=== PATIENT | female | born 1935 | race Caucasian/White ===

== ENCOUNTER 2016-10-29 09:40 | Emergency (ER) | payer MEDICARE ==
[~2016-10-29] VITALS: Ht 147.3 cm; Wt 59.0 kg
[~2016-10-29 09:40] MED LIST: HYDR-3533 PO; IBUP600T26 PO; METO50TA PO; NIFE30TA57 PO; OMEP20CA5 PO; PRAV40TA PO; TRAM50 PO
[2016-10-29] MEDS ORDERED: METO50TA PO (09:52)
[2016-10-29] MEDS ORDERED: OMEP20TA PO (09:52)
[2016-10-29 09:56] VITALS: TEMP 97.6
--- NOTE | 2016-10-29 09:56 | PD ---
HPI Chief Complaint: right knee pain Time Seen by Provider: 09:43 Travel History International Travel<30 days: No Contact w/Intl Traveler<30days: No Traveled to known affect area: No History of Present Illness HPI This is an 81-year-old female who presents today with complaint of right knee pain. The patient was brought in by EMS. The patient states that on Sunday, 5 days ago she and her son were out looking for a scooter chair. She states that she has bad arthritis throughout her body and is looking for scooter chair that would help her with getting around. She reports that she was walking a lot. She states that on Sunday she started sprinting pain in her right knee. She states that it has progressively gotten worse over the last several days. She denies any fevers chills. She denies any injury to the leg. She does report that she was getting in and out of the car and was using that leg for her weightbearing. She does have a history of bursitis in that knee. She states it feels very similar to that. She reports chronic swelling of both knees. There are no other complaints time my examination. PFSH Past Medical History Arthritis: Yes Asthma: No Depression: Yes Heart Rhythm Problems: Yes (HTN) Cancer: No Cardiovascular Problems: No High Cholesterol: Yes Chest Pain: No Congestive Heart Failure: No COPD: No Cerebrovascular Accident: No Diabetes: No Diminished Hearing: Yes Endocrine: No GERD: Yes Genitourinary: No Headaches: No Hepatitis: No Hiatal Hernia: Yes Hypertension: Yes Immune Disorder: No Kidney Stones: No Musculoskeletal: No Neurologic: No Psychiatric: No Reproductive: No Respiratory: No Migraines: No Myocardial Infarction: Yes Renal Failure: No Seizures: No Sleep Apnea: No Thyroid Disease: No Ulcer: No Past Surgical History Abdominal Surgery: No Appendectomy: No Cardiac Surgery: No Cholecystectomy: No Ear Surgery: No Endocrine Surgery: No Eye Surgery: Yes (CATARACT SX LEFT EYE) Genitourinary Surgery: No Gynecologic Surgery: No Oral Surgery: Yes Pacemaker: No Thoracic Surgery: No Social History Alcohol Use: No Tobacco Use: No Substance Use: No Allergies-Medications (Allergen,Severity, Reaction): Coded Allergies: No Known Allergies (Verified , 10/29/16) Reported Meds & Prescriptions Reported Meds & Active Scripts Active Medrol Dosepak (Methylprednisolone) 4 Mg Dspk 4 Mg PO DIRECTED Per Pharmacist direction Mobic (Meloxicam) 7.5 Mg Tab 7.5 Mg PO DAILY Reported Pravastatin 40 Mg Tab 40 Mg PO DAILY Hydrocodone-Acetaminophen 5-325 mg Tab 1 Tab PO TID PRN Pantoprazole (Pantoprazole Sodium) 40 Mg Tab 40 Mg PO DAILY Nifedipine 20 Mg Cap 20 Mg PO TID Sertraline (Sertraline HCl) 100 Mg Tab 100 Mg PO DAILY Metoprolol Tartrate 50 Mg Tab 50 Mg PO BID Omeprazole 20 Mg Tab 20 Mg PO DAILY Review of Systems Except as stated in HPI: all other systems reviewed are Neg General / Constitutional: No: Fever, Chills HENT: No: Headaches, Lightheadedness Cardiovascular: No: Chest Pain or Discomfort, Palpitations Musculoskeletal: Positive: Limited ROM (secondary to pain), Pain (right knee pain), No: Weakness Physical Exam Narrative GENERAL: Well-nourished, well-developed patient, in no acute respiratory distress. SKIN: Focused skin assessment warm/dry. HEAD: Normocephalic/atraumatic. EYES: No scleral icterus. No injection or drainage. NECK: Supple, trachea midline. MUSCULOSKELETAL: On examination patient's right knee, there is arthritic changes. This is consistent in both knees. The patient has tenderness in her suprapatellar region, there is some warmth to the knee. There is mild discomfort with flexion and extension. There is no deformity. NEURO:Awake and alert x 3. Cranial nerves intact. Moves extremities x 4. Data Data Last Documented VS Vital Signs Date Time Temp Pulse Resp B/P Pulse Ox O2 Delivery O2 Flow Rate FiO2 10/29/16 09:56 97.6 Orders Knee, Ltd (1 Or 2vws) (10/29/16 09:47) Methylprednisolone So Succ Inj (Solumedr (10/29/16 10:00) Ketorolac Inj (Toradol Inj) (10/29/16 10:00) MDM Medical Decision Making Medical Screen Exam Complete: Yes Emergency Medical Condition: Yes Differential Diagnosis Osteoarthritis versus bursitis versus septic arthritis Narrative Course 81-year-old female presents with complaints of right knee pain. The patient has a history of suprapatellar bursitis of the right knee in the past. The patient has pain and warmth to the right knee. X-ray show osteoarthritis with no obvious large effusion. The patient is tender in the suprapatellar region which is consistent with her previous. Bursitis. She's been given Solu-Medrol injection as well as a Toradol injection. She'll be discharged with a prescription for Mobic and is Medrol Dosepak. She is instructed to follow up with orthopedic of her choice as needed. Diagnosis Primary Impression: Suprapatellar bursitis of right knee Additional Impression: Osteoarthritis of right knee Additional Instructions: Elevate when not ambulating. Ice 2-3 days. Med/Other Pt SpecificInfo: Prescription(s) given Scripts Methylprednisolone Dosepak (Medrol Dosepak)4 Mg Dspk4 Mg PO DIRECTED #1 DSPK Ref 0 Per Pharmacist direction Prov:Bill Penn MD 10/29/16 Meloxicam (Mobic)7.5 Mg Tab7.5 Mg PO DAILY #30 TAB Ref 0 Prov:Bill Penn MD 10/29/16 Disposition: 01 DISCHARGE HOME Condition: Stable Bill Penn MD Oct 29, 2016 09:55
[2016-10-29] MEDS ORDERED: methylPREDNISolone SOD SUCC 125 MG/2 ML VIAL IM ONE (10:00)
[2016-10-29] MEDS ORDERED: KETOROLAC TROMETHAMINE 60 MG/2 ML (IM) VIAL IM ONE (10:00)
[2016-10-29] MEDS ORDERED: MEDR4PAK PO (10:04)
[2016-10-29] MEDS ORDERED: MOBI7.5T PO (10:04)
[2016-10-29] MEDS ORDERED: SERT-129 PO (10:14)
[2016-10-29] MEDS ORDERED: PANT40TA3 PO (10:14)
[2016-10-29] MEDS ORDERED: PRAV40TA2 PO (10:14)
[2016-10-29] MEDS ORDERED: HYDR-3516 PO (10:14)
[2016-10-29] MEDS ORDERED: NIFE20 PO (10:14)
--- NOTE | 2016-10-29 10:34 | RADRPT ---
EXAM DATE/TIME: 10/29/2016 10:10 [facility] COMPARISON: KNEE RIGHT COMPLETE (4VWS), February 07, 2016, 13:26. INDICATIONS : Knee pain. Swelling to anterior portion of knee. MEDICAL HISTORY : None. SURGICAL HISTORY : None. ENCOUNTER: Initial ACUITY: 1 day PAIN SCORE: 10/10 LOCATION: Right knee FINDINGS: No definite fractures, or dislocations are identified. No definite lytic or sclerotic lesion is seen . Slight osteopenia is seen. There is chondrocalcinosis and a large joint effusion no change. Slight degenerative change is present within tricompartment. CONCLUSION: Chronic changes and no evidence for acute fracture. Isaias Cabello MD on October 29, 2016 at 10:31 Board Certified Radiologist. This report was verified electronically.
== END 2016-10-29 12:12 | disposition home or self-care (01) ==
LOC: NEPD 09:40
DX: M71.9 Bursopathy, unspecified (principal); M17.11 Unilateral primary osteoarthritis, right knee; I10 Essential (primary) hypertension; E78.00 Pure hypercholesterolemia, unspecified
CPT/HCPCS: 73560; 96372; 99283; J1885; J2930

== ENCOUNTER 2016-11-27 18:26 | Emergency (ER) | payer MEDICARE ==
[~2016-11-27] VITALS: Ht 147.3 cm; Wt 57.0 kg
[~2016-11-27 18:26] MED LIST changes: +HYDR-3516 PO; -HYDR-3533 PO; -IBUP600T26 PO; +MEDR4PAK PO; +MOBI7.5T PO; +NIFE20 PO; -NIFE30TA57 PO; -OMEP20CA5 PO; +OMEP20TA PO; +PANT40TA3 PO; -PRAV40TA PO; +PRAV40TA2 PO; +SERT-129 PO; -TRAM50 PO
[2016-11-27 18:33] VITALS: BP 166/102; PULSE 98; RESP 18; TEMP 97.1; O2SAT 96
[2016-11-27] MEDS ORDERED: TEMA15CA PO (18:50)
--- NOTE | 2016-11-27 19:47 | PD ---
HPI Chief Complaint: Back/ Neck Pain or Injury Time Seen by Provider: 19:30 Travel History International Travel<30 days: No Contact w/Intl Traveler<30days: No Traveled to known affect area: No History of Present Illness HPI 81-year-old female presents to the emergency room for evaluation of a fall that occurred last night. Patient stood up from her couch without using her cane and tripped. She fell backwards landing on her buttocks and has since had extremely severe back pain. Pain is localized to her midline lumbar region without radiation. She also reports right buttocks pain. Patient denies hitting her head, loss of consciousness, upper or lower extremity paresthesias, saddle anesthesia, loss of bowel or bladder control, headache, neck pain. She was unable to get up on her own and had to have her neighbors come pick her up. Patient spent all day in the bed today because of pain. She took hydrocodone and tempazepam yesterday but only took tempazepam today. Patient uses a walker at baseline for instability. PFSH Past Medical History Arthritis: Yes Asthma: No Depression: Yes Heart Rhythm Problems: Yes (HTN) Cancer: No Cardiovascular Problems: Yes (htn) High Cholesterol: Yes Chest Pain: No Congestive Heart Failure: No COPD: No Cerebrovascular Accident: No Diabetes: No Diminished Hearing: Yes Endocrine: No GERD: Yes Genitourinary: No Headaches: No Hepatitis: No Hiatal Hernia: Yes Hypertension: Yes Immune Disorder: No Kidney Stones: No Medical other: Yes (reflux arthritis) Musculoskeletal: Yes (bursitis right knee) Neurologic: No Psychiatric: No Reproductive: No Respiratory: No Migraines: No Myocardial Infarction: Yes Renal Failure: No Seizures: No Sleep Apnea: No Thyroid Disease: No Ulcer: No Tetanus Vaccination: < 5 Years Influenza Vaccination: Yes ?: Not Past Surgical History Abdominal Surgery: No Appendectomy: No Cardiac Surgery: No Cholecystectomy: No Ear Surgery: No Endocrine Surgery: No Eye Surgery: Yes (CATARACT SX LEFT EYE) Genitourinary Surgery: No Gynecologic Surgery: No Oral Surgery: Yes Pacemaker: No Thoracic Surgery: No Social History Alcohol Use: No Tobacco Use: No Substance Use: No Allergies-Medications (Allergen,Severity, Reaction): Coded Allergies: No Known Allergies (Verified , 11/27/16) Reported Meds & Prescriptions Reported Meds & Active Scripts Active Reported Temazepam 15 Mg Cap 15 Mg PO HS PRN Pravastatin 40 Mg Tab 40 Mg PO DAILY Hydrocodone-Acetaminophen 5-325 mg Tab 1 Tab PO TID PRN Nifedipine 20 Mg Cap 20 Mg PO TID Metoprolol Tartrate 50 Mg Tab 50 Mg PO BID Omeprazole 20 Mg Tab 20 Mg PO DAILY Review of Systems Except as stated in HPI: all other systems reviewed are Neg Physical Exam Narrative GENERAL: Well-nourished, well-developed female in no acute distress. Afebrile. SKIN: Focused skin assessment warm/dry. No erythema or ecchymosis. HEAD: Normocephalic. EYES: No scleral icterus. No injection or drainage. NECK: Supple, trachea midline. No JVD or lymphadenopathy. CARDIOVASCULAR: Regular rate and rhythm without murmurs, gallops, or rubs. RESPIRATORY: Breath sounds equal bilaterally. No accessory muscle use. BACK: No CVA tenderness. No rash. No point tenderness on palpation of the spine. Strength 5/5 and equal in lower extremities. Negative straight leg raise. Data Data Last Documented VS Vital Signs Date Time Temp Pulse Resp B/P Pulse Ox O2 Delivery O2 Flow Rate FiO2 11/27/16 18:33 97.1 98 18 166/[address] Lumb Spine W/O Contrast (11/27/16 ) Splint Or Brace Apply/Monitor (11/27/16 20:55) MDM Medical Decision Making Medical Screen Exam Complete: Yes Emergency Medical Condition: Yes Medical Record Reviewed: Yes Differential Diagnosis Fracture versus contusion versus abrasion versus sprain versus strain Narrative Course 81-year-old female presents to the emergency room for evaluation of acute low back pain after trip and fall yesterday. Regarding her head or loss of consciousness. No other injuries. No focal neurological deficits. No significant midline tenderness of the spine. Strength 5/5 and equal in lower extremities. CT of the lumbar spine shows T11 vertebral body fracture which extends through the body without significant retropulsion of posterior fragments. I spoke to the neurosurgeon on-call, Dr. Amaya, who recommends TLSO brace, pain control, and follow-up in his office in 10 days. Patient was placed in TLSO brace and discharged with prescription for Lortab. Told to follow up with neurosurgeon or return for worsening symptoms. She understands and agrees to plan. Diagnosis Primary Impression: T11 vertebral fracture Qualified Code: S22.089A - Closed fracture of eleventh thoracic vertebra, unspecified fracture morphology, initial encounter Referrals: Jake Amaya MD Patient Instructions: General Instructions, Vertebral Compression Fracture (ED) Additional Instructions: Rest and drink plenty of fluids. Take Lortab as directed, as needed for pain. Do not drink alcohol or drive while taking this medication. Keep TLSO brace on while up and about. No bending or lifting. Follow-up with Dr. Amaya in 10 days for reimaging. Med/Other Pt SpecificInfo: Prescription(s) given Scripts Hydrocodone-Acetaminophen (Lortab)5-325 Mg Tab1 Tab PO Q6H PRN (PAIN) #12 TAB Ref 0 Prov:Yossi Bourne MD 11/27/16 Disposition: 01 DISCHARGE HOME Condition: Stable Mckayla Huizar November 27, 2016 19:47
--- NOTE | 2016-11-27 20:25 | RADHPO ---
EXAM DATE/TIME: 11/27/2016 19:51 [facility] COMPARISON: No previous studies available for comparison. INDICATIONS : Lower back pain post fall. RADIATION DOSE: 33.20 CTDIvol (mGy) MEDICAL HISTORY : Hypertension. Hernia, hiatal. SURGICAL HISTORY : None. ENCOUNTER: Initial ACUITY: 1 day PAIN SCALE: 10/10 LOCATION: Bilateral lower back TECHNIQUE: Volumetric scanning of the lumbar spine was performed. Multiplanar reconstructions in the sagittal, coronal and oblique axial planes were performed. Using automated exposure control and adjustment of the mA and/or kV according to patient size, radiation dose was kept as low as reasonably achievable t o obtain optimal diagnostic quality images. FINDINGS: VERTEBRAE: No fracture the lumbar spine. There is fracture at T11 which traverses the vertebral body. No signifi cant retropulsion of posterior fragments.. ALIGNMENT: There is retrolisthesis of T12 on L1. Minimal anterolisthesis of L4 and L5.. T12-L1: The thecal sac has a normal diameter. No evidence of disc bulge or protrusion. The neural foramina are patent bilaterally. L1-L2: The thecal sac has a normal diameter. No evidence of disc bulge or protrusion. The neural foramina are patent bilaterally. L2-L3: The thecal sac has a normal diameter. No evidence of disc bulge or protrusion. The neural foramina are patent bilaterally. L3-L4: The thecal sac has a normal diameter. No evidence of disc bulge or protrusion. The neural foramina are patent bilaterally. L4-L5: Minimal anterolisthesis. Mild broad-based disc bulge without canal stenosis. The neural foramina are patent bilaterally. L5-S1: Mild broad-based disc bulge without canal stenosis. The neural foramina are patent bilaterally. CONCLUSION: 1. There is a fracture through T11 vertebral body with mild loss of height. The fracture extends thro ugh the vertebral body but no significant retropulsion of posterior fragments. 2. Retrolisthesis of T12 on L1 and anterolisthesis L4 on L5. Balbir Mckenna MD on November 27, 2016 at 20:20 Board Certified Radiologist. This report was verified electronically.
[2016-11-27] MEDS ORDERED: HYDR-3533 PO (20:58)
== END 2016-11-27 21:50 | disposition home or self-care (01) ==
LOC: PHEFT 18:26
DX: S22.089A Unspecified fracture of T11-T12 vertebra, initial encounter for closed fracture (principal); I10 Essential (primary) hypertension; K21.9 Gastro-esophageal reflux disease without esophagitis; I25.2 Old myocardial infarction; E78.00 Pure hypercholesterolemia, unspecified; M19.90 Unspecified osteoarthritis, unspecified site; F32.9 Major depressive disorder, single episode, unspecified; Z79.899 Other long term (current) drug therapy; W08.XXXA Fall from other furniture, initial encounter
CPT/HCPCS: 72131; L0200; L0484